=== PATIENT | female | born 1990 | race American Indian/Alaskan Native ===

== ENCOUNTER 2016-07-07 11:10 | Emergency (ER) | payer OTHER ==
[2016-07-07 12:29] LABS: Hematocrit 41.5 % (30.3-42.9); Hemoglobin 13.9 gm/dl (10.1-14.3); Mean Corpuscular HGB Conc 34 % (30-34); Mean Corpuscular Hemoglobin 31 pg (28-32); Mean Corpuscular Volume 93 fl (79-97); Platelet Count 228 K/mm3 (140-440); Red Blood Count 4.49 M/mm3 (3.65-5.03); Red Cell Distribution Width 12.6 % (13.2-15.2); White Blood Count 7.1 K/mm3 (4.5-11.0)
--- NOTE | 2016-07-07 12:32 | Cat Scan Report ---
CT HEAD WITHOUT CONTRAST: HISTORY: Headache. Serial contiguous axial images were obtained through the cranium. Intravenous contrast material was not administered. There is no comparison at this facility. A left frontal ventricular catheter is in place. The ventricles are normal in size and appearance. There is no mass effect or midline shift. Mild nonspecific chronic white matter changes are identified in both frontal lobes. There is no evidence for hemorrhage, mass or large area of acute ischemia. No extra-axial fluid collection. The mastoid air cells and visualized portions of the sinuses are normal. IMPRESSION: No acute intracranial process. Mild chronic white matter changes. Ventriculoperitoneal shunt has an unremarkable appearance.
[2016-07-07 12:36] LABS: Basophils % (Auto) 0.6 % (0.0-1.8); Eosinophils % (Auto) 0.9 % (0.0-4.3)
[2016-07-07 12:42] LABS: Alanine Aminotransferase 10 units/L (7-56); Albumin 4.4 g/dL (3.9-5); Albumin/Globulin Ratio 1.7 %; Alkaline Phosphatase 50 units/L (35-129); Anion Gap 16 mmol/L; BUN/Creatinine Ratio 23.33; Blood Urea Nitrogen 14 mg/dL (7-17); Calcium 9.9 mg/dL (8.4-10.2); Carbon Dioxide 25 mmol/L (22-30); Chloride 98.8 mmol/L (98-107); Glucose 96 mg/dL (65-100); Potassium 3.8 mmol/L (3.6-5.0); Sodium 136 mmol/L (137-145)
[2016-07-07 13:11] LABS: Bacteria,Urine 1+ /HPF (Negative); Mucus,Urine FEW /HPF
[2016-07-07 13:15] LABS: Bilirubin,Urine NEG (Negative); Blood,Urine MOD (Negative); Ketones,Urine TR mg/dL (Negative); Leukocyte Esterase,Urine SM (Negative); Nitrite,Urine NEG (Negative); Protein,Urine <15 mg/dL mg/dL (Negative); Urobilinogen,Urine < 2.0 mg/dL (<2.0)
--- NOTE | 2016-07-07 13:55 | Emergency Department Report ---
ED Headache HPI - General Chief Complaint: Headache Stated Complaint: MIGRAINES/MUSCLE PAIN Time Seen by Provider: 07/07/16 13:44 - History of Present Illness Initial Comments: Patient describes intermittent headaches in the left temporal area. She states she has a history of migraine. She has a history of hydrocephalus since she was admitted. Her last shunt revision was in 2014. She's had no subsequent problems. She had screening x-rays and CT ordered and are any performed by the mid-level provider. She states that sometime she is nauseated but not at this moment. She drove to the hospital. She does not refer any fever or chills or any neurological change. She states she recently moved to this area. Timing/Duration: other (days intermittent) Quality: moderate Head Injury Location: temporal Recent Head Trauma: other Associated Symptoms: other (some nausea) Allergies/Adverse Reactions: Allergies latex Adverse Reaction (Verified 07/07/16 11:57) Rash Home Medications: Ambulatory Orders Butalb/Acetaminophen/Caffeine [Fioricet 50-300-40 mg CAP] 1 cap PO Q6HR PRN #14 cap 07/07/16 Ondansetron [Zofran Odt] 4 mg PO Q6H PRN #7 tab.rapdis 07/07/16 ED Review of Systems ROS: Stated complaint: MIGRAINES/MUSCLE PAIN Other details as noted in HPI Constitutional: denies: chills, fever Eyes: denies: eye pain, eye discharge, vision change ENT: denies: ear pain, throat pain Respiratory: denies: cough, shortness of breath, wheezing Cardiovascular: denies: chest pain, palpitations Endocrine: no symptoms reported Gastrointestinal: denies: abdominal pain, nausea, diarrhea Genitourinary: denies: urgency, dysuria, discharge Musculoskeletal: denies: back pain, joint swelling, arthralgia Skin: denies: rash, lesions Neurological: headache. 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 - Social History Smoking Status: Light Tobacco Smoker Substance Use Type: Alcohol, Marijuana - Medications Home Medications: Home Medications Medication Instructions Recorded Confirmed Last Taken Type Butalb/Acetaminophen/Caffeine 1 cap PO Q6HR PRN #14 cap 07/07/16 Unknown Rx [Fioricet 50-300-40 mg CAP] Ondansetron [Zofran Odt] 4 mg PO Q6H PRN #7 tab.rapdis 07/07/16 Unknown Rx ED Physical Exam - General Limitations: No Limitations General appearance: alert, in no apparent distress - Head Head exam: Present: atraumatic, normocephalic, other (shunt noted) - Eye Eye exam: Present: normal appearance - ENT ENT exam: Present: normal exam, mucous membranes moist - Neck Neck exam: Present: normal inspection. Absent: tenderness, meningismus - Respiratory Respiratory exam: Present: normal lung sounds bilaterally. Absent: respiratory distress - Cardiovascular Cardiovascular Exam: Present: regular rate, normal rhythm. Absent: systolic murmur, diastolic murmur, rubs, gallop - GI/Abdominal GI/Abdominal exam: Present: soft, normal bowel sounds. Absent: distended, tenderness, guarding, rebound - Extremities Exam Extremities exam: Present: normal inspection - Back Exam Back exam: Present: normal inspection - Neurological Exam Neurological exam: Present: alert, oriented X3, CN II-XII intact, normal gait. Absent: motor sensory deficit - Psychiatric Psychiatric exam: Present: normal affect, normal mood - Skin Skin exam: Present: warm, dry, intact, normal color. Absent: rash ED Course Vital Signs 07/07/16 12:00 Temperature 98.6 F Pulse Rate 84 Respiratory 17 Rate Blood Pressure 116/80 O2 Sat by Pulse 98 Oximetry - Reevaluation(s) Reevaluation #1: Given analgesia and an antiemetic. The patient was called to walk time of my encounter. She is appropriate for outpatient referral. 07/07/16 14:04 ED Medical Decision Making - Lab Data Result diagrams: 07/07/16 12:09 07/07/16 12:09 Laboratory Results - last 24 hr 07/07/16 07/07/16 07/07/16 12:09 12:09 12:31 WBC 7.1 RBC 4.49 Hgb 13.9 Hct 41.5 MCV 93 MCH 31 MCHC 34 RDW 12.6 L Plt Count 228 Lymph % (Auto) 34.6 [place] % (Auto) 6.3 Eos % (Auto) 0.9 Baso % (Auto) 0.6 Lymph # 2.5 [place] # 0.5 Eos # 0.1 Baso # 0.0 Seg Neutrophils % 57.6 Seg Neutrophils # 4.1 Sodium 136 L Potassium 3.8 Chloride 98.8 Carbon Dioxide 25 Anion Gap 16 BUN 14 Creatinine 0.6 L Estimated GFR > 60 BUN/Creatinine Ratio 23.33 Glucose 96 Calcium 9.9 Total Bilirubin 0.80 AST 13 ALT 10 Alkaline Phosphatase 50 Total Protein 7.0 Albumin 4.4 Albumin/Globulin Ratio 1.7 Urine Color Yellow Urine Turbidity Clear Urine pH 6.0 Ur Specific [place] 1.013 Urine Protein <15 mg/dl Urine Glucose (UA) Neg Urine Ketones Tr Urine Blood Mod Urine Nitrite Neg Ur Reducing Substances Not Reportable Urine Bilirubin Neg Urine Ictotest Not Reportable Urine Urobilinogen < 2.0 Ur Leukocyte Esterase Sm Urine WBC (Auto) 9.0 H Urine RBC (Auto) 2.0 U Epithel Cells (Auto) 15.0 H Urine Bacteria (Auto) 1+ Urine Mucus Few Urine Yeast (Budding) Few Urine HCG, Qual 07/07/16 12:38 WBC RBC Hgb Hct MCV MCH MCHC RDW Plt Count Lymph % (Auto) [place] % (Auto) Eos % (Auto) Baso % (Auto) Lymph # [place] # Eos # Baso # Seg Neutrophils % Seg Neutrophils # Sodium Potassium Chloride Carbon Dioxide Anion Gap BUN Creatinine Estimated GFR BUN/Creatinine Ratio Glucose Calcium Total Bilirubin AST ALT Alkaline Phosphatase Total Protein Albumin Albumin/Globulin Ratio Urine Color Urine Turbidity Urine pH Ur Specific [place] Urine Protein Urine Glucose (UA) Urine Ketones Urine Blood Urine Nitrite Ur Reducing Substances Urine Bilirubin Urine Ictotest Urine Urobilinogen Ur Leukocyte Esterase Urine WBC (Auto) Urine RBC (Auto) U Epithel Cells (Auto) Urine Bacteria (Auto) Urine Mucus Urine Yeast (Budding) Urine HCG, Qual Negative Critical care attestation.: If time is entered above; I have spent that time in minutes in the direct care of this critically ill patient, excluding procedure time. ED Disposition Clinical Impression: History of hydrocephalus Cephalalgia Qualifiers: Headache type: unspecified Headache chronicity pattern: acute headache Intractability: not intractable Qualified Code(s): R51 - Headache Disposition: DISCHARGED TO HOME OR SELFCARE Is pt being admited?: No Does the pt Need Aspirin: No Condition: Stable Instructions: Acute Headache (ED) Additional Instructions: Follow-up with neurologist. Return any acute change or problem. Rx as needed. Prescriptions: Butalb/Acetaminophen/Caffeine [Fioricet 50-300-40 mg CAP] 1 cap PO Q6HR PRN #14 cap PRN Reason: Headache Ondansetron [Zofran Odt] 4 mg PO Q6H PRN #7 tab.rapdis PRN Reason: nausea Referrals: PRIMARY CARE, [Primary Care Provider] - 3-5 Days Time of Disposition: 14:05
[2016-07-07] MEDS ORDERED: TORADOL IM ONE (14:01)
[2016-07-07] MEDS ORDERED: ZOFRAN ODT PO ONE (14:02)
[2016-07-07 15:18] VITALS: BP 120/80
--- NOTE | 2016-07-07 16:54 | XRay Report ---
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 COMPARISON: None similar. FINDINGS: AP and lateral skull radiographs as also frontal projections of the chest and abdomen demonstrate a left transfrontal shunt catheter tip about the midline with its tubing leading to a left temporal connector. Further distal shunt courses along the neck on the left, over the left hemithorax medially with its lower extent overlapping the spine about the GE junction. Further distally in the abdomen, it projects left paraspinal lumbar and looped in the pelvis. An approximately 10 cm tubular/catheter fragment in the pelvis not confirmed connected to the remainder of the tubing radiographically. Normal cardiomediastinal silhouette. Clear lungs. Nonobstructive bowel gas pattern without focal suspicious calcifications, pneumatosis or pneumoperitoneum. Unremarkable bones. CONCLUSION: Approximately 10 cm long catheter tubing in the pelvis nonspecific and not clearly identified connected to the remainder of the PRODUCTION SUPERVISOR OFF SHIFT shunt that appears intact, as detailed above. Please correlate. Thank you for the opportunity to participate in this patient's care.
--- NOTE | 2016-07-07 16:54 | XRay Report ---
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 COMPARISON: None similar. FINDINGS: AP and lateral skull radiographs as also frontal projections of the chest and abdomen demonstrate a left transfrontal shunt catheter tip about the midline with its tubing leading to a left temporal connector. Further distal shunt courses along the neck on the left, over the left hemithorax medially with its lower extent overlapping the spine about the GE junction. Further distally in the abdomen, it projects left paraspinal lumbar and looped in the pelvis. An approximately 10 cm tubular/catheter fragment in the pelvis not confirmed connected to the remainder of the tubing radiographically. Normal cardiomediastinal silhouette. Clear lungs. Nonobstructive bowel gas pattern without focal suspicious calcifications, pneumatosis or pneumoperitoneum. Unremarkable bones. CONCLUSION: Approximately 10 cm long catheter tubing in the pelvis nonspecific and not clearly identified connected to the remainder of the CLINICAL INSTRUCTOR shunt that appears intact, as detailed above. Please correlate. Thank you for the opportunity to participate in this patient's care.
--- NOTE | 2016-07-07 16:54 | XRay Report ---
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 COMPARISON: None similar. FINDINGS: AP and lateral skull radiographs as also frontal projections of the chest and abdomen demonstrate a left transfrontal shunt catheter tip about the midline with its tubing leading to a left temporal connector. Further distal shunt courses along the neck on the left, over the left hemithorax medially with its lower extent overlapping the spine about the GE junction. Further distally in the abdomen, it projects left paraspinal lumbar and looped in the pelvis. An approximately 10 cm tubular/catheter fragment in the pelvis not confirmed connected to the remainder of the tubing radiographically. Normal cardiomediastinal silhouette. Clear lungs. Nonobstructive bowel gas pattern without focal suspicious calcifications, pneumatosis or pneumoperitoneum. Unremarkable bones. CONCLUSION: Approximately 10 cm long catheter tubing in the pelvis nonspecific and not clearly identified connected to the remainder of the RECREATIONAL THERAPY TECHNICIAN shunt that appears intact, as detailed above. Please correlate. Thank you for the opportunity to participate in this patient's care.
== END 2016-07-07 14:19 | disposition home or self-care (01) ==
LOC: ED 11:10
DX: R51 Headache (principal); R56.9 Unspecified convulsions; F17.200 Nicotine dependence, unspecified, uncomplicated; F12.10 Cannabis abuse, uncomplicated; Z86.79 Personal history of other diseases of the circulatory system; Z91.040 Latex allergy status
CPT/HCPCS: 36415; 70250; 70450; 71010; 74000; 80053; 81001; 81025; 85025

== ENCOUNTER 2016-07-30 13:48 | Emergency (ER) | payer OTHER ==
[2016-07-30 14:46] LABS: Basophils % (Auto) 0.5 % (0.0-1.8); Eosinophils % (Auto) 0.8 % (0.0-4.3); Hematocrit 39.4 % (30.3-42.9); Hemoglobin 13.3 gm/dl (10.1-14.3); Mean Corpuscular HGB Conc 34 % (30-34); Mean Corpuscular Hemoglobin 31 pg (28-32); Mean Corpuscular Volume 91 fl (79-97); Platelet Count 247 K/mm3 (140-440); Red Blood Count 4.31 M/mm3 (3.65-5.03); Red Cell Distribution Width 12.6 % (13.2-15.2)
[2016-07-30 15:05] LABS: Alanine Aminotransferase 9 units/L (7-56); Albumin 4.4 g/dL (3.9-5); Albumin/Globulin Ratio 1.5 %; Alkaline Phosphatase 66 units/L (35-129); Anion Gap 20 mmol/L; Blood Urea Nitrogen 9 mg/dL (7-17); Calcium 9.9 mg/dL (8.4-10.2); Carbon Dioxide 24 mmol/L (22-30); Chloride 98.4 mmol/L (98-107); Glucose 94 mg/dL (65-100); Lipase 25 units/L (13-60); Potassium 3.9 mmol/L (3.6-5.0); Sodium 138 mmol/L (137-145); Total Protein 7.4 g/dL (6.3-8.2)
[2016-07-30 16:49] LABS: Bacteria,Urine 1+ /HPF (Negative); Bilirubin,Urine NEG (Negative); Blood,Urine LG (Negative); Ketones,Urine TR mg/dL (Negative); Leukocyte Esterase,Urine MOD (Negative); Mucus,Urine FEW /HPF; Nitrite,Urine NEG (Negative); Urobilinogen,Urine < 2.0 mg/dL (<2.0)
[2016-07-30 16:50] LABS: RBC,Urine > 182.0 /HPF (0.0-6.0)
[2016-07-30 20:30] VITALS: BP 107/69
[2016-07-30] MEDS ORDERED: XYLOCAINE 1% MPF 5 mL INFILTRATI ONE (20:33)
[2016-07-30] MEDS ORDERED: ROCEPHIN IM ONE (20:33)
[2016-07-30] MEDS ORDERED: ZOFRAN ODT PO ONE (20:33)
--- NOTE | 2016-07-30 20:35 | Emergency Department Report ---
ED Abdominal Pain HPI - General Chief Complaint: Abdominal Pain Stated Complaint: ABD PAIN/LEFT SIDE Time Seen by Provider: 07/30/16 20:29 Source: patient Mode of arrival: Ambulatory Limitations: No Limitations - History of Present Illness Initial Comments: Patient here complaining of left-sided abdominal pain flank pain approximately one month. She is reporting urinary urgency and pressure on and off. Complaining of blood in her urine on and off. She says she is not sure if it's her period or if it's coming from her urine became sometimes she gets her period 2 times in 1 months and the last time was 07/06/2016. She says she's been going to the bathroom more frequently since last night. She said it is uncomfortable to urinate. Reports hot flashes and sweats at night. She said she doesn't have a fever. Her pain to left lower abdomen and flank is 4 out of 10. She denies any nausea or vomiting. MD Complaint: abdominal pain, flank pain Onset/Timin -: month(s) Location: LUQ, L flank Radiation: none Migration to: no migration Severity: mild Severity scale (0 -10): 4 Quality: aching Consistency: intermittent Associated Symptoms: chills, hematuria. denies: nausea, vomiting, diarrhea, fever, constipation, dysuria, hematemesis, hematochezia, melena, anorexia, syncope Treatments Prior to Arrival: other (none) - Related Data LMP Date: 07/06/16 Previous Rx's Medication Instructions Recorded Last Taken Type Nitrofurantoin [place]/M-Cryst 100 mg PO Q12HR #14 capsule 07/30/16 Unknown Rx [Macrobid CAP] Allergies Allergy/AdvReac Type Severity Reaction Status Date / Time latex AdvReac Rash Verified 07/30/16 14:21 ED Review of Systems ROS: Stated complaint: ABD PAIN/LEFT SIDE Other details as noted in HPI Comment: All other systems reviewed and negative Constitutional: chills. denies: fever Respiratory: no symptoms reported Cardiovascular: denies: chest pain, palpitations, dyspnea on exertion, orthopnea , syncope Gastrointestinal: abdominal pain. denies: nausea, vomiting, diarrhea, constipation Genitourinary: urgency, frequency, hematuria, abnormal menses. denies: dysuria , discharge Musculoskeletal: back pain (lank pain left). 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 Absent: periorbital swelling , periorbital tenderness Pupils: Present: normal accommodation - Neck Neck exam: Present: normal inspection, full ROM, lymphadenopathy. Absent: tenderness - Respiratory Respiratory exam: Present: normal lung sounds bilaterally. Absent: rhonchi, stridor, chest wall tenderness - Cardiovascular Cardiovascular Exam: Present: regular rate, normal rhythm, normal heart sounds - GI/Abdominal GI/Abdominal exam: Present: soft, normal bowel sounds. Absent: distended, tenderness, guarding, rebound, rigid - Extremities Exam Extremities exam: Present: normal inspection, full ROM, normal capillary refill. Absent: tenderness, pedal edema, joint swelling - Back Exam Back exam: Present: normal inspection, full ROM. Absent: tenderness, CVA tenderness (R), CVA tenderness (L), muscle spasm, paraspinal tenderness, vertebral tenderness, rash noted - Neurological Exam Neurological exam: Present: alert, oriented X3, normal gait - Psychiatric Psychiatric exam: Present: normal affect, normal mood - Skin Skin exam: Present: warm, dry, intact, normal color. Absent: rash ED Course Vital Signs 07/30/16 07/30/16 14:23 20:29 Temperature 98.7 F 98.6 F Pulse Rate 91 H 73 Respiratory 18 16 Rate Blood Pressure 122/84 Blood Pressure 107/69 [Left] O2 Sat by Pulse 97 100 Oximetry - Reevaluation(s) Reevaluation #1: 07/30/16 23:25 She receives Rocephin 1 g IM and Zofran 4 mg ODT and emergency room. ED Medical Decision Making - Lab Data Result diagrams: 07/30/16 14:30 07/30/16 14:30 Lab Results 07/30/16 07/30/16 07/30/16 Range/Units 14:30 14:30 14:30 WBC 9.0 (4.5-11.0) K/mm3 RBC 4.31 (3.65-5.03) M/mm3 Hgb 13.3 (10.1-14.3) gm/dl Hct 39.4 (30.3-42.9) % MCV 91 (79-97) fl MCH 31 (28-32) pg MCHC 34 (30-34) % RDW 12.6 L (13.2-15.2) % Plt Count 247 (140-440) K/mm3 Lymph % (Auto) 15.8 (13.4-35.0) % [place] % (Auto) 11.6 H (0.0-7.3) % Eos % (Auto) 0.8 (0.0-4.3) % Baso % (Auto) 0.5 (0.0-1.8) % Lymph # 1.4 (1.2-5.4) K/mm3 [place] # 1.0 H (0.0-0.8) K/mm3 Eos # 0.1 (0.0-0.4) K/mm3 Baso # 0.0 (0.0-0.1) K/mm3 Seg Neutrophils % 71.3 H (40.0-70.0) % Seg Neutrophils # 6.4 (1.8-7.7) K/mm3 Sodium 138 (137-145) mmol/L Potassium 3.9 (3.6-5.0) mmol/L Chloride 98.4 (98-107) mmol/L Carbon Dioxide 24 (22-30) mmol/L Anion Gap 20 mmol/L BUN 9 (7-17) mg/dL Creatinine 0.6 L (0.7-1.2) mg/dL Estimated GFR > 60 ml/min BUN/Creatinine Ratio 15.00 % Glucose 94 (65-100) mg/dL Calcium 9.9 (8.4-10.2) mg/dL Total Bilirubin 0.70 (0.1-1.2) mg/dL AST 13 (5-40) units/L ALT 9 (7-56) units/L Alkaline Phosphatase 66 (35-129) units/L Total Protein 7.4 (6.3-8.2) g/dL Albumin 4.4 (3.9-5) g/dL Albumin/Globulin Ratio 1.5 % Lipase 25 (13-60) units/L HCG, Qual Negative (Negative) Urine Color (Yellow) Urine Turbidity (Clear) Urine pH (5.0-7.0) Ur Specific [place] (1.003-1.030) Urine Protein (Negative) mg/dL Urine Glucose (UA) (Negative) mg/dL Urine Ketones (Negative) mg/dL Urine Blood (Negative) Urine Nitrite (Negative) Urine Bilirubin (Negative) Urine Urobilinogen (<2.0) mg/dL Ur Leukocyte Esterase (Negative) Urine WBC (Auto) (0.0-6.0) /HPF Urine RBC (Auto) (0.0-6.0) /HPF U Epithel Cells (Auto) (0-13.0) /HPF Urine Bacteria (Auto) (Negative) /HPF Urine Mucus /HPF 05/25/17 Range/Units 16:20 WBC (4.5-11.0) K/mm3 RBC (3.65-5.03) M/mm3 Hgb (10.1-14.3) gm/dl Hct (30.3-42.9) % MCV (79-97) fl MCH (28-32) pg MCHC (30-34) % RDW (13.2-15.2) % Plt Count (140-440) K/mm3 Lymph % (Auto) (13.4-35.0) % [place] % (Auto) (0.0-7.3) % Eos % (Auto) (0.0-4.3) % Baso % (Auto) (0.0-1.8) % Lymph # (1.2-5.4) K/mm3 [place] # (0.0-0.8) K/mm3 Eos # (0.0-0.4) K/mm3 Baso # (0.0-0.1) K/mm3 Seg Neutrophils % (40.0-70.0) % Seg Neutrophils # (1.8-7.7) K/mm3 Sodium (137-145) mmol/L Potassium (3.6-5.0) mmol/L Chloride (98-107) mmol/L Carbon Dioxide (22-30) mmol/L Anion Gap mmol/L BUN (7-17) mg/dL Creatinine (0.7-1.2) mg/dL Estimated GFR ml/min BUN/Creatinine Ratio % Glucose (65-100) mg/dL Calcium (8.4-10.2) mg/dL Total Bilirubin (0.1-1.2) mg/dL AST (5-40) units/L ALT (7-56) units/L Alkaline Phosphatase (35-129) units/L Total Protein (6.3-8.2) g/dL Albumin (3.9-5) g/dL Albumin/Globulin Ratio % Lipase (13-60) units/L HCG, Qual (Negative) Urine Color Yellow (Yellow) Urine Turbidity Slightly-cloudy (Clear) Urine pH 5.0 (5.0-7.0) Ur Specific [place] 1.011 (1.003-1.030) Urine Protein 30 mg/dl (Negative) mg/dL Urine Glucose (UA) Neg (Negative) mg/dL Urine Ketones Tr (Negative) mg/dL Urine Blood Lg (Negative) Urine Nitrite Neg (Negative) Urine Bilirubin Neg (Negative) Urine Urobilinogen < 2.0 (<2.0) mg/dL Ur Leukocyte Esterase Mod (Negative) Urine WBC (Auto) 93.0 H (0.0-6.0) /HPF Urine RBC (Auto) > 182.0 (0.0-6.0) /HPF U Epithel Cells (Auto) 2.0 (0-13.0) /HPF Urine Bacteria (Auto) 1+ (Negative) /HPF Urine Mucus Few /HPF Urine culture pending - Radiology Data Radiology results: report reviewed CT scan of the abdomen as pelvis without contrast shows no evidence of ureterolithiasis or appendicitis. Mall to moderate amount of free pelvic fluid. They may have been resent ovarian cyst rupture or ovulation. Patient with 2 peroneal tubes which is from COUNTER SERVER shunts secondary to hydrocephalus. - Medical Decision Making ED Course: Patient with acute cystitis with hematuria. CT scan result revealed no urolithiasis or appendicitis. I discussed the patient that she has hemorrhagic cystitis and her CT scan did not show any acute findings. Patient was given Rocephin 1 g IM in emergency room to treat urinary tract infection along with Zofran 4 mg ODT. I discussed diagnosis and treatment plan the patient also discussed lab result with her. She had discharged home and voices understanding to discharge instruction to follow up with her primary care physician in 5 days. Patient discharged home with prescription for Macrobid. Pt Able to tolerate oral liquids in the emergency room without any nausea or vomiting. I discussed with her she does not have a primary care physician she should follow-up with outside [facility] to call tomorrow to schedule an appointment. Critical care attestation.: If time is entered above; I have spent that time in minutes in the direct care of this critically ill patient, excluding procedure time. ED Disposition Clinical Impression: Acute cystitis with hematuria Abdominal pain Qualifiers: Abdominal location: left lower quadrant Qualified Code(s): R10.32 - Left lower quadrant pain Disposition: DISCHARGED TO HOME OR SELFCARE Is pt being admited?: No Does the pt Need Aspirin: No Condition: Stable Instructions: Urinary Tract Infection in Women (ED), Abdominal Pain (ED) Additional Instructions: Please increase her fluid intake to 2-3 L of liquids per day. take antibiotic as prescribed. Follow-up with your primary care physician in 5 days and if you do not have a primary care physician please follow-up with [facility] Prescriptions: Nitrofurantoin [place]/M-Cryst [Macrobid CAP] 100 mg PO Q12HR #14 capsule Referrals: PRIMARY CARE [Primary Care Provider] - 08/04/16 [facility] [Outside] - 08/04/16 Forms: Work/School Release Form(ED)
--- NOTE | 2016-07-30 21:36 | Cat Scan Report ---
FINAL REPORT EXAM: CT ABDOMEN PELVIS WO CON HISTORY: hematuria with lt flank pain TECHNIQUE: Helical CT scan through the abdomen and pelvis without contrast. Images are reconstructed in the sagittal and coronal planes. PRIORS: None. FINDINGS: Solid organ and bowel evaluation is limited without intravenous contrast. Bowel evaluation is limited without oral contrast. There is a tube in the upper abdomen in the subcutaneous soft tissues of the sub xiphoid area, enters the peritoneal cavity in the upper central abdomen, anterior to the left lobe of the liver and courses along the anterior peritoneum on the right, ending at the level of the mid pelvis. There another shorter tube in the central pelvis that makes an upside down U. The lung bases are clear. The liver, gallbladder, pancreas, spleen and adrenal glands appear normal. The kidneys appear grossly normal. There is no hydronephrosis or ureterolithiasis. The uterus and ovaries appear grossly normal. There is a small to moderate amount of free pelvic fluid. The stomach appears grossly within normal limits. There are no abnormally dilated loops of bowel or acute inflammatory changes. A normal-appearing appendix is identified. The abdominal aorta has a normal diameter. The bones and subcutaneous soft tissues are unremarkable for age. IMPRESSION: 1. Small to moderate amount of free pelvic fluid. There may have been recent ovarian cyst rupture or ovulation. 2. No evidence of urolithiasis or appendicitis. 3. Please correlate with the clinical history for the nature of the 2 peroneal tubes described above.
== END 2016-07-30 23:43 | disposition home or self-care (01) ==
LOC: ED 13:48
DX: N30.01 Acute cystitis with hematuria (principal); R56.9 Unspecified convulsions; F17.200 Nicotine dependence, unspecified, uncomplicated; Z91.040 Latex allergy status
CPT/HCPCS: 36415; 74176; 80053; 81001; 83690; 84703; 85025; 87076; 87086; 87186; 96372; 99284; J0696; Q0162